=== PATIENT | female | born 1995 | race African-American/Black ===

== ENCOUNTER 2017-01-10 20:22 | Emergency (ER) | payer BC ==
[~2017-01-10] VITALS: Ht 157.5 cm; Wt 75.3 kg
[2017-01-10 20:27] VITALS: Ht 157.5 cm; Wt 75.3 kg
[2017-01-10] MEDS ORDERED: AMOXICILLIN HOME PACK 250 MG/TAB PO ONE (21:15)
[2017-01-10] MEDS ORDERED: DEXT1LIQ58 PO (21:17)
[2017-01-10] MEDS ORDERED: [UNRECOGNIZED DRUG - REMARK] PO (21:17)
[2017-01-10] MEDS ORDERED: AMOX500T3 PO (21:24)
[2017-01-10 21:32] VITALS: BP 138/100; PULSE 84; TEMP 36.8; O2SAT 100
--- NOTE | 2017-01-11 00:44 | EMERGENCY ROOM VISIT NOTE ---
History First contact with patient: 21:05 Chief Complaint: EAR PAIN Stated Complaint: POSSIBLE EAR INFECTION History of Present Illness The patient is a 21 year old female who presents to the Emergency Room with complaints of a possible left ear infection. The patient reports that she developed cold symptoms 2 days ago. She has taken multiple OTC medications without relief. The patient reports that she has had multiple ear infections in the past. She has not required any tympanostomy procedures. The patient also reports developing laryngitis this morning as well. She rates her ear discomfort a 5 out of 10. She denies any significant productive cough, chest pain, headache, neck pain, back pain, diarrhea or urinary symptoms. Review of Systems 10 system review was performed and was negative except for pertinent positives and negatives as indicated in history of present illness Past Medical/Surgical History Medical Problems: (1) Recurrent otitis media Surgical Problems: (1) No history of previous surgery Family History Unremarkable Social History Smoking Status: Never Smoker Alcohol Use: none Marital Status: single Housing Status: lives with friends Occupation Status: [employer] student Current/Historical Medications Scheduled Amoxicillin (Amoxil), 500 MG PO TID Scheduled PRN Dextromethorphan-Phenylephrine (Vicks Dayquil Cold & Flu), 1 DOSE PO UD PRN for Cold/Flu Symptoms [Unknown Decongestant], 1 DOSE PO UD PRN for Decongestant Physical Exam Vital Signs Date Time Temp Pulse Resp B/P (MAP) Pulse Ox O2 Delivery O2 Flow Rate FiO2 01/10/17 21:32 36.8 84 18 138/100 100 01/10/17 20:27 36.8 86 18 136/89 100 Room Air Physical Exam CONSTITUTIONAL: Healthy and well nourished. Alert and oriented X 3 with positive affect. Patient does not appear in any acute distress. HEENT: Normocephalic, atraumatic. Pupils equal, round and reactive. No facial edema noted. Examination of the right ears show significant TM bulging without air-fluid levels, erythema or blunting of light reflex. Examination of the left ear, however, shows significant bulging and complete erythema. Bony landmarks and light reflexes are absent. No TM perforation noted. NECK: Full active range of motion without discomfort. INTEGUMENTARY: No rash or other significant dermatologic conditions noted. Medical Decision & Procedures Medications Administered Medications (Trade) Dose Ordered Sig/Addi Route Start Time Stop Time Status Last Admin Dose Admin Amoxicillin (Amoxil 250MG Home Pack) 1 [facility] UD ONCE PO 01/10/17 21:15 01/10/17 21:17 DC 01/10/17 21:28 1 HOMEPACK ED Course Patient history and physical exam were performed. Nurse's notes were reviewed. Vital signs were reviewed and were normal. Clinical exam is consistent with a left otitis media. The patient was provided a home pack and prescription for amoxicillin as she has taken this before in the past. She was encouraged to follow-up with her PCP or ENT with any persistent symptoms, sooner with any drainage from the ear or developing fever. Ibuprofen and Tylenol in alternating fashion as needed for pain relief. The patient was happy with plan of care, voiced understanding of all discharge instructions, refused any analgesics while in the emergency department, and rated her discomfort a 4 out of 10 at the conclusion of my exam. Medical Decision Impression Primary Impression: Left otitis media Additional Impressions: Upper respiratory infection Laryngitis Departure Information Dispostion Home / Self-Care Condition GOOD Prescriptions Amoxicillin (AMOXIL) 500 Mg Tab 500 MG PO TID for 10 Days, #30 TAB Prov: Satinder Ramos PA 01/10/17 Forms HOME CARE DOCUMENTATION FORM, IMPORTANT VISIT INFORMATION Patient Instructions Sore Throats Self Care, My [facility], ED Otitis Media Acute Adult Additional Instructions Complete all amoxicillin antibiotics as prescribed. Ibuprofen 800 mg and/or Tylenol 1000 mg every 8 hours. You may also alternate these medications for more effective pain relief: Ibuprofen --4 HRS--> Tylenol --4 HRS--> ibuprofen --4 HRS--> Tylenol .... Follow-up with [facility] as needed with any symptoms that are not improving within the next 7 days. Problem Qualifiers Primary Impression: Left otitis media Otitis media type: suppurative Chronicity: acute Recurrence: recurrent Spontaneous tympanic membrane rupture: without spontaneous rupture Qualified Codes: H66.005 - Acute suppurative otitis media without spontaneous rupture of ear drum, recurrent, left ear Additional Impressions: Upper respiratory infection URI type: unspecified URI Qualified Codes: J06.9 - Acute upper respiratory infection, unspecified
== END 2017-01-10 21:32 | disposition home or self-care (01) ==
LOC: C.EDB 20:24 → C.EDD 21:32
DX: J06.9 Acute upper respiratory infection, unspecified (principal); J04.0 Acute laryngitis; H66.92 Otitis media, unspecified, left ear